=== PATIENT | male | born 1960 | race Caucasian/White ===

== ENCOUNTER → 2019-01-10 10:18 | Outpatient (CLI) | payer OTHER, SELFPAY ==
--- NOTE | 2019-01-10 11:36 | PM.TREADMILL ---
Cardiac Stress Test Report Referral & Results Date Patient Seen: 01/10/19 Requesting provider: Bucky Calle Indication: Dyspnea with exertion Rest ECG: Unremarkable Procedure Note: Today following both written and verbal informed consent, the patient was exercised according to a standard Noé protocol. The patient exercised for a total of 9 min 25 sec achieving a maximum heart rate of 140 for. Patient's maximum systolic blood pressure was 160. This was an estimated 10.[address]-T segment changes were identified Patient's oxygen saturation remained normal throughout Functional aerobic impairment rated 0 on the active scale Impression: No evidence of ischemia No evidence of hypoxia with exercise Patient with average to maybe slightly better than average exercise capacity as above Please note: Actual ECG tracings can be found in the PACS system.
== END ==
PROVIDERS: PCP Student in an Organized Health Care Education/Training Program; Visit Provider Student in an Organized Health Care Education/Training Program
DX: R06.00 Dyspnea, unspecified (principal)
CPT/HCPCS: 93016; 93017; 93018